=== PATIENT | female | born 1960 | race Caucasian/White ===

== ENCOUNTER 2019-09-26 13:37 | Outpatient (CLI) | payer OTHER | END 2019-09-26 15:00 | disposition home or self-care (01) | LOC: LAB 13:37 | DX: N20.0 Calculus of kidney (principal) ==

== ENCOUNTER → 2019-10-14 | Outpatient (CLI) | payer OTHER | END | disposition home or self-care (01) | LOC: MAMO-SONO 08:30 → RAD 08:45 → MRI 09:15 | DX: R19.00 Intra-abdominal and pelvic swelling, mass and lump, unspecified site (principal) | CPT/HCPCS: 72196 ==

== ENCOUNTER 2019-10-25 07:32 | Outpatient (CLI) | payer OTHER | END 2019-10-25 07:38 | disposition home or self-care (01) | LOC: MRI 07:32 | DX: R10.11 Right upper quadrant pain (principal); R10.13 Epigastric pain | CPT/HCPCS: 74182 ==

== ENCOUNTER 2020-01-15 09:44 | Outpatient (CLI) | payer OTHER | END 2020-01-15 09:46 | disposition home or self-care (01) | LOC: SONOGRAMA 09:44 | DX: R19.00 Intra-abdominal and pelvic swelling, mass and lump, unspecified site (principal) ==

== ENCOUNTER 2022-02-15 07:42 | Outpatient (CLI) | payer OTHER | END 2022-02-15 07:51 | disposition home or self-care (01) | LOC: SONOGRAMA 07:42 | DX: N83.202 Unspecified ovarian cyst, left side (principal) ==

== ENCOUNTER 2023-11-29 09:26 | Outpatient (CLI) | payer OTHER | END 2023-11-29 09:28 | disposition home or self-care (01) | LOC: NUCLEAR 09:26 | PROVIDERS: ATTEND Specialist | DX: R10.13 Epigastric pain (principal) ==

== ENCOUNTER 2025-01-10 08:35 | Outpatient (CLI) | payer OTHER ==
[2025-01-10 09:57] LABS: HEMATOCRIT 39.5 % (36.0-45.00); HEMOGLOBIN 13.4 g/dL (12.0-15.00); MEAN CELL VOLUME 80.9 fL (80.00-100.00); MEAN CORPUSCULAR HEMOGLOBIN 27.4 pg (27.00-32.0); MEAN CORPUSCULAR HGB CONC 33.8 g/dl (32.0-36.0); PLATELET COUNT 214 K/uL (150-450); RED BLOOD COUNT 4.88 M/uL (4.00-6.00); RED CELL DISTRIBUTION WIDTH 14.6 % (11.5-14.5)
[2025-01-10 10:00] LABS: PH,URINE 5.5 (5.0-8.0); URINE APPEARANCE Clear; URINE BILIRRUBIN Negative (NEGATIVE); URINE BLOOD Small; URINE COLOR Yellow; URINE GLUCOSE Negative (NEGATIVE); URINE KETONE Negative (NEGATIVE); URINE LEUKOCYTE Trace; URINE NITRATE Negative; URINE PROTEIN Negative (NEGATIVE); URINE UROBILINOGEN 0.2 E.U./dl
[2025-01-10 10:06] LABS: URINE EPITHELIAL CELLS 3.4 uL (0.0-38.8); URINE RBC 32.2 uL (0.0-20.8); URINE WBC 5.6 uL (0.0-23.2)
[2025-01-10 10:24] LABS: CHOL HDL RATIO 3.2 (0-5.0); TSH 1.25 uIU/mL (0.358-3.74)
== END 2025-01-10 08:43 | disposition home or self-care (01) ==
LOC: LAB 08:35
PROVIDERS: ATTEND Internal Medicine
DX: E11.9 Type 2 diabetes mellitus without complications (principal); E11.40 Type 2 diabetes mellitus with diabetic neuropathy, unspecified; E03.9 Hypothyroidism, unspecified; D64.9 Anemia, unspecified; N30.00 Acute cystitis without hematuria; N20.9 Urinary calculus, unspecified; E78.5 Hyperlipidemia, unspecified; K76.0 Fatty (change of) liver, not elsewhere classified; R19.5 Other fecal abnormalities

== ENCOUNTER 2025-01-14 13:34 | Outpatient (CLI) | payer OTHER | END 2025-01-14 13:44 | disposition home or self-care (01) | LOC: TOM 13:34 | PROVIDERS: ATTEND Internal Medicine | DX: G44.221 Chronic tension-type headache, intractable (principal) ==

== ENCOUNTER → 2025-02-01 07:33 | Outpatient (CLI) | payer OTHER ==
[2025-02-01 09:04] LABS: ALBUMIN 3.8 gm/dL (3.4-5.0); BILIRUBIN TOTAL 0.52 mg/dL (0.3-1.2); CALCIUM 8.8 mg/dL (8.5-10.1); CREATININE SERUM 0.65 mg/dL (0.55-1.02); GFR 91.48; GLOBULINA 3.4 G/DL (2.4-3.5); POTASSIUM 4.43 mEq/L (3.5-5.1); TOTAL PROTEIN 7.2 gm/dL (6.4-8.2)
== END | disposition home or self-care (01) ==
LOC: LAB 07:33
PROVIDERS: ATTEND Urology
DX: R31.21 Asymptomatic microscopic hematuria (principal)

== ENCOUNTER 2025-02-06 07:27 | Outpatient (CLI) | payer OTHER | END 2025-02-06 07:32 | disposition home or self-care (01) | LOC: MAMO-SONO 07:27 | PROVIDERS: ATTEND Urology | DX: N60.01 Solitary cyst of right breast (principal); N60.02 Solitary cyst of left breast; R31.21 Asymptomatic microscopic hematuria | CPT/HCPCS: 74178; 76641; 77066; Q9965 ==

== ENCOUNTER 2025-05-06 10:51 | Outpatient (CLI) | payer OTHER | END 2025-05-06 10:55 | disposition home or self-care (01) | LOC: SONOGRAMA 10:51 | DX: M75.50 Bursitis of unspecified shoulder (principal); M75.51 Bursitis of right shoulder; M75.52 Bursitis of left shoulder ==

== ENCOUNTER 2025-07-21 07:16 | Outpatient (CLI) | payer OTHER | END 2025-07-21 07:18 | disposition home or self-care (01) | LOC: SONOGRAMA 07:16 | PROVIDERS: ATTEND Internal Medicine | DX: K80.00 Calculus of gallbladder with acute cholecystitis without obstruction (principal) ==